=== PATIENT | male | born 1960 | race Caucasian/White ===

== ENCOUNTER → 2017-01-16 | Outpatient (CLI) | payer BC ==
--- NOTE | 2017-01-17 16:12 | MR ---
EXAMINATION TYPE: MR hip RT wo con DATE OF EXAM: 01/16/2017 9:05 PM COMPARISON: NONE HISTORY: 56-year-old male with right Hip Pain x4 years TECHNIQUE: Multiplanar, multisequence images of the right hip were obtained without IV contrast. FINDINGS: Prostate gland demonstrates cystic change and enlargement 4.9 cm wide and 4.3 cm craniocaudal. No evidence for hip fracture or AVN. There is marginal spurring at the right hip with superolateral joint space narrowing and prominent naranjo bchondral cystic change. Subchondral geodes measure up to 1.3 cm within the acetabular roof. There is subchondral marrow edema on both sides of the joint and suggestion of tear of the superior labrum. Asymmetric small right-sided joint effusion. There is suggestion of some degenerative change also at the left hip with subchondral cystic change a long the acetabular roof. Bony changes could be better evaluated with a radiographs. There is some degenerative signal change in the subarticular portion of the inferior SI joints, left greater than right. Mild heterogeneous marrow signal without spacious bone marrow replacement. The rectus femoris and and string origins as well as the iliopsoas and gluteal insertions appear inta ct. Symmetric course of the sciatic nerves. The right sciatic nerve is slightly larger with slightly incr eased signal. IMPRESSION: 1. Moderate to severe right hip osteoarthrosis is suggested. Reactive small joint effusion. The bony changes could be better evaluated radiographically. No hip fracture or AVN. 2. At least mild left hip osteoarthrosis. 3. Minimally larger right sciatic nerve as compared to the left with greater degree of signal as well . Correlate for possible right-sided sciatica. 4. Mild bilateral SI joint osteoarthrosis. 5. Prostatomegaly with cystic change (4.9 cm wide), suggesting cystic BPH. Further clinical correlati on recommended.
== END | disposition home or self-care (01) ==
LOC: RADMRIMAIN 20:02
PROVIDERS: ATTEND Family Medicine
DX: M53.3 Sacrococcygeal disorders, not elsewhere classified (principal); M25.551 Pain in right hip

== ENCOUNTER 2017-08-04 05:50 | Inpatient (IN) | payer BC ==
[2017-07-29 16:14] VITALS: BMI 27.8
--- NOTE | 2017-08-03 16:12 | HP ---
HISTORY AND PHYSICAL Surgery is scheduled for 08/04/2017. Miguel Almeida is a 57-year-old patient seen with progressive right hip pain consistent with symptomatic osteoarthritis. After treatment options were discussed, he elected to proceed with direct anterior right total hip arthroplasty. Consent was obtained, clearance was provided by Dr. Donohue. PAST MEDICAL HISTORY: Hypertension. PAST SURGICAL HISTORY: Noncontributory. DAILY MEDICATIONS: Amlodipine, benazepril, Neurontin. ALLERGIES: None reported. SOCIAL HISTORY: Patient is denies current tobacco use. PHYSICAL EXAMINATION: Evaluation right hip: There is very limited range of motion with significant pain, diffuse tenderness. Positive hip impingement sign. Straight leg raise is negative. Distal neurovascular exam is intact right hip. RADIOGRAPHS: Right hip radiographs revealed moderate to severe osteoarthritis. An MRI of the right hip reveals severe osteoarthritis. IMPRESSION: Right hip osteoarthritis. PLAN: Direct anterior right total hip arthroplasty. MMODL / IJN: [id number] /
[~2017-08-04 05:50] MED LIST: ACETAMINOPHEN TAB 500 MG TAB PO ONE; DEXAMETHASONE SOD PHOSPHATE 10 MG/ML 1 ML VIAL IV ONE; HYDROmorphone 0.5 MG/0.5 ML SYRINGE IVP PRN; MELOXICAM 7.5 MG TAB PO ONE; MIDAZOLAM 2 MG/2 ML VIAL IV PRN; ONDANSETRON 4 MG/2 ML VIAL IVP ONE; SCOPOLAMINE 1.5MG/72HR PATCH TRANSDERM ONE; TRANEXAMIC ACID 1,000 MG in SODIUM CHLORIDE 0.9% 100 ML IVPB ONE; ceFAZolin IN SWFI 2 GM/20 ML SYRINGE IVP ONE
[2017-08-04 06:23] VITALS: RESP 16
[2017-08-04] MEDS: LACTATED RINGERS 1,000 ML IV SCH ×3 (06:29→20:11)
[2017-08-04] MEDS ORDERED: LIDOCAINE 1% 20 ML VIAL (10MG/ML) FOR IV START INTRADERMA ONE (06:29)
[2017-08-04] MEDS ORDERED: PHENYLEPHRINE-0.9% NACL SYG 1 MG/10 ML SYRINGE ONE (07:24)
[2017-08-04] MEDS ORDERED: PROPOFOL 10 MG/ML 20 ML VIAL IV ONE (07:24)
[2017-08-04] MEDS ORDERED: ROPIVACAINE 246.25 MG, EPINEPHrine 0.5 MG, KETOROLAC 30 MG, cloNIDine HCL/PF 80 MCG, WA... MISCELLANE ONE ×5 (07:24)
[2017-08-04] MEDS ORDERED: fentaNYL (PF) 50 MCG/ML 2 ML AMP ONE (07:24)
[2017-08-04] MEDS ORDERED: MIDAZOLAM 2 MG/2 ML VIAL ONE (07:24)
[2017-08-04] MEDS ORDERED: TRANEXAMIC ACID 1,000 MG/10 ML VIAL ONE (07:24)
[2017-08-04] MEDS ORDERED: SODIUM CHLORIDE 0.9% 100 ML BAG ONE (07:24)
[2017-08-04] MEDS ORDERED: SODIUM CHLORIDE 0.9% 0 ML with ceFAZolin 2 GM IV ONE ×2 (07:37)
[2017-08-04] MEDS ORDERED: ceFAZolin 3,000 MG in SODIUM CHLORIDE 0.9% IRRIGATIO 3,000 ML IRRIGATION ONE (08:17)
[2017-08-04] MEDS ORDERED: LACTATED RINGERS 1,000 ML IV ONE ×2 (08:44→09:51)
--- NOTE | 2017-08-04 10:03 | XR ---
Fluoroscopy History: IN OR ANT RT HIP ORIF Dr. Jordan supervised use of lacho for a rt ant hip surgery. 43 secs fluoro and 1 paper images save d.
[2017-08-04] MEDS ORDERED: NALOXONE 0.4 MG/ML 1 ML VIAL IV PRN (10:10)
[2017-08-04] MEDS ORDERED: HYDROcodone/APAP 7.5-325MG 1 EACH TAB PO PRN (10:10)
[2017-08-04] MEDS ORDERED: hydrOXYzine PAMOATE 25 MG CAP PO PRN (10:10)
[2017-08-04] MEDS ORDERED: HYDROmorphone 0.5 MG/0.5 ML SYRINGE IVP PRN ×2 (10:10)
[2017-08-04] MEDS ORDERED: ONDANSETRON 4 MG/2 ML VIAL IVP PRN (10:10)
[2017-08-04] MEDS ORDERED: HYDROmorphone 2 MG/ML 1 ML SYRINGE IVP PRN (10:10)
--- NOTE | 2017-08-04 10:10 | P.OP ---
Date of Procedure: 08/04/17 Preoperative Diagnosis: Right hip osteoarthritis Postoperative Diagnosis: Right hip osteoarthritis Procedure(s) Performed: Direct anterior right total hip arthroplasty Implants: 1. Depuy [place] KA size 14 with collar press-fit femoral stem 2. Depuy [place] size 60 press-fit acetabular shell 3. Depuy [place] polyethylene acetabular liner 60 mm OD 36 mm ID 4. Depuy metal femoral head 36 mm -2 Anesthesia: local, spinal Surgeon: Yair Jordan Ax Survey Worker #1: Teddy Vu Estimated Blood Loss (ml): 600 Pathology: other (Femoral head) Condition: stable Disposition: PACU Indications for Procedure: 57-year-old patient seen with symptomatic right hip osteoarthritis. After we discussed treatment options, he elected to proceed with total hip arthroplasty. Operative Findings: see description of procedure Description of Procedure: The patient was taken to the operative suite. Patient underwent a spinal anesthetic by the department of anesthesia. Patient was then transferred to the [place] table. Patient was given preoperative IV antibiotics and TXA. Both lower extremities were placed in standard leg spars. The hip was then prepped and draped in the normal sterile orthopedic fashion. A standard anterior incision was made beginning 3 cm lateral and 1 cm distal to the ASIS extending 10 cm. Dissection was then carried down through the subcutaneous soft tissues down to the fascia overlying the tensor fascia colton. An incision was now made through the fascia. Careful dissection was taken down exposing the tensor fascia colton muscle. A Cobra retractor was now placed along the medial femoral neck and a second one along the lateral femoral neck. The venous circumflex vessels were now identified, cauterized and clipped. We identified the anterior hip capsule. An incision was made through the hip capsule along the lateral border. Tag sutures were then placed along the anterior capsule and lateral capsule. We then performed a capsulotomy. Retractors were now placed around the femoral neck itself. A Cobra retractor was now placed along the anterior acetabulum. Good exposure was now noted of the femoral head/neck complex. Residual labrum was debrided out. We placed the extremity into 3 turns of fine traction. We were then able to introduce a skid in between the femoral head and acetabulum. A placed a awl into the femoral head. We took 2 turns of traction off the extremity. Rotation was now released. The femoral head was then dislocated without difficulty. Additional releasing was performed of the capsule. The head was then reduced. All traction was released. A femoral neck cut was now made with a sagittal saw. It was completed with an osteotome at the lateral neck area. The femoral head was now removed without difficulty. There was advanced osteoarthritis noted of both the femoral head and acetabulum. The extremity was now rotated to 45 of external rotation. It was locked in position. Residual labrum was now debrided out. Serial reaming was performed of the acetabulum. Once we reached the appropriate size and a trial was position and fit nicely. The appropriate size was now chosen opened and made available. The wound was irrigated with pulse lavage mechanical irrigation. It was introduced into the acetabulum without difficulty. The C-arm/fluoroscopy was now brought into the operative field. We made sure we had a true AP pelvic view. We now under direct C-arm/ fluoroscopy introduced into the acetabular component with appropriate version and inclination. It was well seated and stable. The C-arm was pulled back. An appropriate liner was introduced and clicked into position. It was felt to be stable. At this point retractors were removed. The extremity was now placed into 120 external rotation with no traction. The leg was now dropped to the ground and adducted. Appropriate retractors were now positioned along the proximal femur. We also placed our femoral look into position. Additional capsular releasing was performed to gain access to the proximal femur. We now used a box osteotome. A canal finder was now utilized. Serial broaching was now performed until we reached the appropriate size with good overall rotational stability. Appropriate calcar planing was performed. A trial head/ neck was placed into position. The hip was now reduced. The C-arm/fluoroscopy was brought back into the operative field. A spot film was obtained of the nonoperative hip. A spot film was obtained of the trial components. Overlays were performed, we noted good overall alignment and positioning for determining leg length. The C-arm/fluoroscopy was pulled back. Retractors were repositioned and the hip was dislocated. The leg was again taken down to the ground and adducted. Appropriate retractors were repositioned as well as the femoral hook. All trial components were removed. The wound was irrigated with pulse lavage mechanical irrigation. The femoral implant was opened along with the femoral head. The femoral implant was introduced with good purchase and fixation noted. The femoral head was introduced with good positioning and fixation noted. Retractors were now removed. The hip was now reduced. There appeared be good positioning of the hip components. A spot film was obtained intraoperatively to document component positioning. A second gram of TXA was given. Bipolar cautery had been utilized intermittently through the procedure for hemostasis. The wound was irrigated copiously with pulse lavage mechanical irrigation. The deep soft tissues were infiltrated with local analgesic. The fascia was repaired with Vicryl suture. The subcutaneous soft tissues were repaired in layers with Vicryl suture. The skin was approximated with pernio/ Dermabond. Sterile dressings were applied. Patient was then awakened, transferred to a bed and taken to recovery in stable condition. Alvin CAPONE assisted with the procedure.
[2017-08-04] MEDS: HYDROcodone/APAP 7.5-325MG 1 EACH TAB PO PRN ×2 (11:48→16:46)
[2017-08-04] MEDS: traMADol 50 MG TAB PO SCH ×3 (12:31→21:47)
--- NOTE | 2017-08-04 15:04 | P.CONS ---
History of Present Illness - Reason for Consult Consult date: 08/04/17 Medical management Requesting physician: Yair Jordan - Chief Complaint Status post right total hip arthroplasty - History of Present Illness This is a 57-year-old male, patient of Dr. Donohue. He has a known past medical history of hypertension and osteoarthritis. Patient underwent a right total hip arthroplasty. Tolerated surgery well. Estimated blood loss 600 mL. Patient sitting in bedside chair. Denies any pain. Denies chest pain or shortness breath. Denies any nausea or vomiting. Denies any bowel movement changes. Stills Dickson catheter in place. We been consulted for medical management. Review of Systems Please refer to HPI otherwise unremarkable Past Medical History Past Medical History: Hypertension History of Any Multi-Drug Resistant Organisms: None Reported Past Surgical History: Appendectomy Additional Past Surgical History / Comment(s): ant TRH Past Anesthesia/Blood Transfusion Reactions: No Reported Reaction Past Psychological History: No Psychological Hx Reported Smoking Status: Never smoker Past Alcohol Use History: None Reported Past Drug Use History: None Reported - Past Family History Mother Family Medical History: Cancer Medications and Allergies Home Medications Medication Instructions Recorded Confirmed Type Benazepril [Lotensin] 10 mg PO QAM 07/29/17 08/04/17 History Cetirizine HCl [Zyrtec] 20 mg PO DAILY 07/29/17 08/04/17 History Gabapentin [Neurontin] 600 mg PO BID 07/29/17 08/04/17 History amLODIPine [Norvasc] 5 mg PO QAM 07/29/17 08/04/17 History Allergies Allergy/AdvReac Type Severity Reaction Status Date / Time dust Allergy See Comment Uncoded 08/04/17 12:34 Physical Exam Vitals: Vital Signs Temp Pulse Pulse Pulse Resp BP Pulse Ox 08/04/17 12:40 70 16 121/64 97 08/04/17 12:25 67 16 112/66 99 08/04/17 12:10 71 16 129/85 95 08/04/17 11:55 72 16 121/55 96 08/04/17 11:40 58 L 16 128/79 96 08/04/17 11:25 62 16 121/63 96 08/04/17 11:10 97.6 F 62 16 114/71 93 L 08/04/17 10:45 62 16 90/50 96 08/04/17 10:30 58 L 16 93/55 97 08/04/17 10:15 98 F 72 16 89/57 95 08/04/17 06:22 98.4 F 62 16 129/89 96 Intake and Output 08/04/17 08/04/17 08/04/17 06:59 14:59 22:59 Intake Total 400 2371 Output Total 875 Balance 400 1496 Intake: IV 400 2371 Output: Urine 275 Estimated Blood Loss 600 Other: Voiding Method Indwelling Catheter Weight 90.718 kg Patient Weight 08/05/17 06:59 Weight 90.718 kg Head normocephalic Neck supple Lungs clear to auscultation bilaterally no wheezing or crackles Heart regular rate and rhythm S1-S2, no rub or gallop Abdomen is soft nontender nondistended positive bowel sounds no hepatosplenomegaly Extremities no edema. Right hip dressing clean dry and intact. SCDs in place. Denies any numbness in his toes. Patient is able to wiggle toes. Neuro alert and orientated to 3 Assessment and Plan Assessment: 1. Right hip osteoarthritis: Status post direct anterior right total hip arthroplasty. Continue DVT prophylaxis with Lovenox and pain medications per orthopedic protocol 2. Essential hypertension: Blood pressures have been stable. Resume his Norvasc and lisinopril tomorrow morning 3. GI prophylaxis Pepcid and DVT prophylaxis Lovenox 4. Encourage incentive spirometry use Thank you for this consultation. We will continue to follow along with you during patient's hospitalization. Time with Patient: Greater than 30 (Greater than 50% of the total time spent in counseling and coordination of care.I performed an examination of the patient and discussed their management with the physician Steel Molder. I have reviewed the Physician Steel Molder's notes and agree with the documented findings and plan of care)
[2017-08-04] MEDS: ceFAZolin IN SWFI 2 GM/20 ML SYRINGE IVP SCH (16:02)
[2017-08-04] MEDS: GABAPENTIN 300 MG CAP PO SCH (20:08)
[2017-08-04] MEDS ORDERED: SENNOSIDES-DOCUSATE SODIUM 1 EACH TAB PO SCH (21:00)
[2017-08-05] MEDS: ceFAZolin IN SWFI 2 GM/20 ML SYRINGE IVP SCH (00:08)
[2017-08-05 01:59] VITALS: TEMP 97.8
[2017-08-05] MEDS: LACTATED RINGERS 1,000 ML IV SCH ×3 (03:45→09:05)
[2017-08-05] MEDS: HYDROcodone/APAP 7.5-325MG 1 EACH TAB PO PRN ×2 (06:28→13:29)
[2017-08-05 07:25] LABS: Basophils % (A) 0 %; CH 28.5; CHCM 32.7; Eosinophils % (A) 0 %; HCT 35.6 % (39.0-53.0); HDW 2.46; HGB 11.3 gm/dL (13.0-17.5); Luc # (Auto) 0.06; Luc % (Auto) 0; Lymphocytes # (A) 1.4 k/uL (1.0-4.8); Lymphocytes % (A) 10 %; MCH 27.9 pg (25.0-35.0); MCHC 31.8 g/dL (31.0-37.0); MCV 87.8 fL (80.0-100.0); Mean Platelet Volume 7.5; Monocytes # (A) 0.7 k/uL (0-1.0); Monocytes % (A) 5 %; Neutrophils # (A) 12.5 k/uL (1.3-7.7); Neutrophils % (A) 85 %; RBC 4.06 m/uL (4.30-5.90); RDW 13.6 % (11.5-15.5); WBC 14.8 k/uL (3.8-10.6); WBC (Perox) 15.59
[2017-08-05 07:36] LABS: ALT 34 U/L (21-72); AST 26 U/L (17-59); Alkaline Phosphatase 34 U/L (38-126); Anion Gap 8 mmol/L; Blood Urea Nitrogen 12 mg/dL (9-20); Carbon Dioxide 27 mmol/L (22-30); Chloride 103 mmol/L (98-107); Glucose 106 mg/dL (74-99); Non-African American GFR(MDRD) >60 (>60 ml/min/1.73 sqM); Potassium 4.4 mmol/L (3.5-5.1); Sodium 138 mmol/L (137-145); Total Bilirubin 0.3 mg/dL (0.2-1.3); Total Protein 5.4 g/dL (6.3-8.2)
[2017-08-05 08:55] VITALS: BP 124/61; PULSE 70
[2017-08-05] MEDS: GABAPENTIN 300 MG CAP PO SCH (08:57)
[2017-08-05] MEDS: traMADol 50 MG TAB PO SCH ×2 (08:58→12:33)
[2017-08-05] MEDS ORDERED: LORATADINE 10 MG TAB PO SCH (09:00)
[2017-08-05] MEDS ORDERED: FAMOTIDINE 20 MG TAB PO SCH (09:00)
[2017-08-05] MEDS ORDERED: MELOXICAM 7.5 MG TAB PO SCH (09:00)
[2017-08-05] MEDS ORDERED: amLODIPine 5 MG TAB PO SCH (09:00)
[2017-08-05] MEDS ORDERED: LISINOPRIL 10 MG TAB PO SCH (09:00)
[2017-08-05] MEDS ORDERED: ENOXAPARIN 40 MG/0.4 ML SYRINGE SQ SCH (09:00)
--- NOTE | 2017-08-05 10:48 | P.PN ---
Subjective Progress Note Date: 08/05/17 Status post right total hip arthroplasty Patient has been up and ambulating. Dickson catheter removed this morning. He denies any chest pain or shortness breath. Denies any nausea or vomiting. He is passing some gas. No bowel movement yet. The plan for discharge this afternoon. White count is 14.8. He is afebrile. No evidence of cellulitis. No cough. Objective - Vital Signs Vital signs: Vital Signs Temp 97.8 F 08/05/17 07:50 Pulse 70 08/05/17 08:55 Resp 16 08/05/17 07:50 BP 124/61 08/05/17 08:55 Pulse Ox 93 L 08/05/17 07:50 Intake & Output 08/04/17 08/05/17 08/05/17 18:59 06:59 18:59 Intake Total 2371 1300 Output Total 1275 1050 550 Balance 1096 250 -550 Weight 90.718 kg Intake: IV 2371 Intake, IV Titration 1300 Amount Lactated Ringers 1,000 ml 1300 @ 100 mls/hr IV .Q10H [facility] Rx#:[id number] Output: Urine 675 1050 550 Uretheral (Dickson) 400 350 Estimated Blood Loss 600 Other: Voiding Method Indwelling Catheter Indwelling Catheter - Exam Head normocephalic Neck supple Lungs clear to auscultation bilaterally no wheezing or crackles Heart regular rate and rhythm S1-S2, no rub or gallop Abdomen is soft nontender nondistended positive bowel sounds no hepatosplenomegaly Extremities no edema. Right hip incision site some minimal bruising noted. No evidence of cellulitis Neuro alert and orientated to 3 - Labs CBC & Chem 7: 08/05/17 06:41 08/05/17 06:41 Labs: Abnormal Lab Results - Last 24 Hours (Table) 08/05/17 08/05/17 Range/Units 06:41 06:41 WBC 14.8 H (3.8-10.6) k/uL RBC 4.06 L (4.30-5.90) m/uL Hgb 11.3 L (13.0-17.5) gm/dL Hct 35.6 L (39.0-53.0) % Neutrophils # 12.5 H (1.3-7.7) k/uL Glucose 106 H (74-99) mg/dL Alkaline Phosphatase 34 L (38-126) U/L Total Protein 5.4 L (6.3-8.2) g/dL Albumin 3.2 L (3.5-5.0) g/dL Assessment and Plan Assessment: 1. Right hip osteoarthritis: Status post direct anterior right total hip arthroplasty. Continue DVT prophylaxis with Lovenox and pain medications per orthopedic protocol 2. Essential hypertension: Blood pressures have been stable. Continue Lisinopril and Norvasc 3. GI prophylaxis Pepcid and DVT prophylaxis Lovenox 4. Leukocytosis likely reactive from surgery. No evidence of cellulitis or any acute infection. Recommend repeating CBC in 1 week Patient is medically stable for discharge when cleared by orthopedics. He is to follow-up with his PCP in 1 week.
--- NOTE | 2017-08-05 11:48 | P.PN ---
Subjective Progress Note Date: 08/05/17 Principal diagnosis: Status post right total hip arthroplasty Patient seen today resting in his hospital bed, he appears comfortable. The pain is well-controlled. He's ambulatory well with therapy. He has urinated on his own after removal of the catheter. He denies any headaches, lightheadedness, chest pain, shortness of breath. Objective - Vital Signs Vital signs: Vital Signs Temp 97.8 F 08/05/17 07:50 Pulse 70 08/05/17 08:55 Resp 16 08/05/17 07:50 BP 124/61 08/05/17 08:55 Pulse Ox 93 L 08/05/17 07:50 Intake & Output 08/04/17 08/05/17 08/05/17 18:59 06:59 18:59 Intake Total 2371 1300 Output Total 1275 1050 1150 Balance 1096 250 -1150 Weight 90.718 kg Intake: IV 2371 Intake, IV Titration 1300 Amount Lactated Ringers 1,000 ml 1300 @ 100 mls/hr IV .Q10H [facility] Rx#:[id number] Output: Urine 675 1050 1150 Uretheral (Dickson) 400 350 Estimated Blood Loss 600 Other: Voiding Method Indwelling Catheter Indwelling Catheter - Exam Right lower extremity: Incision is clean, dry, and intact. The prineo tape is in good condition. There is minimal soft tissue swelling and ecchymosis surrounding the medial and lateral aspects of the incision. Calf is soft, no tenderness with palpation. Plantar flexion, dorsiflexion, EHL, FHL are intact. Sensory exam to light touch throughout the extremity is intact, dorsal pedis pulses 2+. - Labs CBC & Chem 7: 08/05/17 06:41 08/05/17 06:41 Labs: Abnormal Lab Results - Last 24 Hours (Table) 08/05/17 08/05/17 Range/Units 06:41 06:41 WBC 14.8 H (3.8-10.6) k/uL RBC 4.06 L (4.30-5.90) m/uL Hgb 11.3 L (13.0-17.5) gm/dL Hct 35.6 L (39.0-53.0) % Neutrophils # 12.5 H (1.3-7.7) k/uL Glucose 106 H (74-99) mg/dL Alkaline Phosphatase 34 L (38-126) U/L Total Protein 5.4 L (6.3-8.2) g/dL Albumin 3.2 L (3.5-5.0) g/dL Assessment and Plan Plan: Assessment: 1. Postop day #1 status post right total hip arthroplasty Plan: 1. Pain control, we'll discharge home on oral medication 2. Home therapy and nursing after discharge 3. Wound care instructions discussed at bedside today 4. GI and DVT prophylaxis, we'll discharge home on aspirin 325 mg twice a day 5. Medical recommendations 6. Discharge planning: Patient will be discharged home today Time with Patient: Less than 30
--- NOTE | 2017-08-05 11:52 | P.DS ---
Providers Date of admission: 08/04/17 05:50 Expected date of discharge: 08/05/17 Attending physician: Yair Jordan Consults: 08/04/17 10:10 Consult Physician Routine Consulting Provider: Criss Purcell Consult Reason/Comments: Medical management Do you want consulting provider notified?: Yes Primary care physician: [facility] Hospital Course: Date of admission: 08/04/2017 Date of discharge: 08/05/2017 Admission diagnosis: Status post right total hip arthroplasty Discharge diagnosis: Same Attending physician: Dr. Jordan Surgical procedures: Right total hip arthroplasty Brief history: Patient is a 57-year-old male with a history of aggressive primary right hip osteoarthritis. At this point patient has failed conservative treatment measures and has opted to proceed with a elective right total hip arthroplasty. Hospital course: Details of patient's surgery can be found in operative report. Patient tolerated the procedure well and was subsequently transported to orthopedic floor. Patient's orthopeidc and medical care was provided daily. Patient had daily laboratory tests performed for evaluation of overall blood counts. Patient had daily physical therapy to include strengthening range of motion as well as education with walker ambulation. Patient was treated with Lovenox for their postoperative DVT prophylaxis during their inpatient stay. Patient was noted to have a relatively uneventful postoperative course. Patient reported satisfactory pain control with oral pain medications by postoperative day 0. Patient showed satisfactory progress with physical therapy. Patient moved steadily through the program and had no difficulty meeting the goals by postoperative day 1. Given patient's otherwise satisfactory course and having met physical therapy goals, plan is to discharge patient home on postoperative day 1. Discharge condition/disposition: Patient will be discharged home in stable condition. Discharge medications: Instructions are given on resumption of patient's normal daily medications per primary care recommendation, in addition patient will be prescribed [place] 7.5 mg/325 mg, tramadol 50 mg, Colace 100 mg, Pepcid 20 mg, aspirin 325 mg. Discharge instructions: 1. Wound care and infection precautions, keep incision dry and covered while showering, no lotions, creams, moisturizers. No soaking, tubs, pools, hottubs. Do not scrub over the incision. 2. Weight-bear as tolerated with walker / cane until follow-up. 3. Ice and elevate when necessary. Do not exceed 20 minutes per hour with ice pack. 4. Utilize compression sleeve until seen at first follow up appointment. 5. Visiting nursing care. 6. Home physical therapy. 7. Pain meds and anticoagulants per prescription. 8. Pain medication has potential to cause constipation. Increase oral fluid and fiber intake. Contact primary care provider if you have not had a bowel movement within 48 hours after discharge 9. No anti-inflammatory medication until discussed at first post operative visit, this including Motrin, Aleve, Mobic, Diclofenac. 10. Follow up in office at 2 weeks postop with Alvin Vu PA-C 11. Follow up with your primary care doctor 7-10 days after discharge. 12. Contact [facility] with any questions, . Procedures: right total hip arthroplasty Patient Condition at Discharge: Good Plan - Discharge Summary Discharge Rx Participant: Yes New Discharge Prescriptions: New Aspirin 325 mg PO BID #60 tab Docusate [Colace] 100 mg PO DAILY #30 capsule Famotidine [Pepcid] 20 mg PO DAILY #30 tablet HYDROcodone/APAP 7.5-325MG [[place] 7.5] 1 - 2 each PO Q6HR PRN #40 tab PRN Reason: Pain traMADol HCl [Ultram] 50 mg PO Q6H PRN #40 tab PRN Reason: Pain Continue Cetirizine HCl [Zyrtec] 20 mg PO DAILY amLODIPine [Norvasc] 5 mg PO QAM Gabapentin [Neurontin] 600 mg PO BID Benazepril [Lotensin] 10 mg PO QAM Discharge Medication List Benazepril [Lotensin] 10 mg PO QAM 07/29/17 [History] Cetirizine HCl [Zyrtec] 20 mg PO DAILY 07/29/17 [History] Gabapentin [Neurontin] 600 mg PO BID 07/29/17 [History] amLODIPine [Norvasc] 5 mg PO QAM 07/29/17 [History] Aspirin 325 mg PO BID #60 tab 08/05/17 [Rx] Docusate [Colace] 100 mg PO DAILY #30 capsule 08/05/17 [Rx] Famotidine [Pepcid] 20 mg PO DAILY #30 tablet 08/05/17 [Rx] HYDROcodone/APAP 7.5-325MG [[place] 7.5] 1 - 2 each PO Q6HR PRN #40 tab 08/05/17 [ Rx] traMADol HCl [Ultram] 50 mg PO Q6H PRN #40 tab 08/05/17 [Rx] Follow up Appointment(s)/Referral(s): Samia Donohue DO [Primary Care Provider] - 1 Week [facility], [NON-STAFF] - Teddy Vu PAC [PHYSICIAN [employer]OVING DEPARTMENT END FINDER] - 2 Weeks Activity/Diet/Wound Care/Special Instructions: Orthopedic Discharge Instructions: 1. Wound care and infection precautions, keep incision dry and covered while showering spine, no lotions, creams, moisturizers. No soaking, pools, hot tubs. Do not scrub over incision. 2. Weight-bear as tolerated with walker / cane until follow-up. 3. Ice and elevate when necessary. Do not exceed 20 minutes per hour with ice pack. 4. Utilize compression sleeve until seen at first follow up appointment. 5. Visiting nursing care. 6. Home physical therapy. 7. Pain meds and anticoagulants per prescription. 8. Pain medication has potential to cause constipation. Increase oral fluid and fiber intake. Contact primary care provider if you have not had a bowel movement within 48 hours after discharge. 9. No anti-inflammatory medication until discussed at first post operative visit, this including Motrin, Aleve, Mobic, Diclofenac. 10. Follow up in office at 2 weeks postop with Avlin Vu PA-C 11. Follow up with your primary care doctor 7-10 days after discharge. 12. Contact [facility] with any questions, . Discharge Disposition: HOME WITH HOME HEALTH SERVICES
[2017-08-05] MEDS ORDERED: MULTIVITAMINS, THERA 1 EACH TAB PO SCH (12:00)
== END 2017-08-05 15:10 | disposition home health service (06) | DRG 470 ==
LOC: 2ORMAIN 05:50 → 3SUR 10:00
PROVIDERS: ADMIT Orthopaedic Surgery; ATTEND Orthopaedic Surgery
PROC: 0SR902A Replacement of Right Hip Joint with Metal on Polyethylene Synthetic Substitute, Uncemented, Open Approach (ICD-10-PCS; principal; 2017-08-04 07:30)
DX: M16.11 Unilateral primary osteoarthritis, right hip (principal); I10 Essential (primary) hypertension; D72.829 Elevated white blood cell count, unspecified; Z79.899 Other long term (current) drug therapy
CPT/HCPCS: 36415; 73501; 80053; 85025; 86850; 86900; 86901; 87070; 88300

== ENCOUNTER 2019-09-21 00:04 | Emergency (ER) | payer BC ==
--- NOTE | 2019-09-21 01:49 | ED ---
General Adult HPI - General Chief complaint: Allergic Reaction Stated complaint: night sweats, poss med reaction Time Seen by Provider: 09/21/19 01:32 Source: patient, family Mode of arrival: ambulatory Limitations: no limitations - History of Present Illness Initial comments: This patient is a 59-year-old man who presents to be evaluated for what he is concerned may be medication reaction. The patient states that he has been having what he believes is bronchitis. He has been taking [id number] medication, including a DayQuil medication. He states that over the past couple of nights she has been feeling sweaty. He has had the cough that he attributed bronchitis, with occasional sputum. No hemoptysis. No dyspnea. When questioned about chest pain, patient states that he had some heartburn-like symptoms the past couple of days. Patient also notes that he had started a new medication to help him sleep. He had been taking amitriptyline 25 mg as needed. Onset/Timin -: days(s) Location: chest Radiation: non-radiation Quality: burning Consistency: intermittent, now resolved Improves with: none Worsens with: none Treatments Prior to Arrival: other (Cold medication) - Related Data Home Medications Medication Instructions Recorded Confirmed Benazepril [Lotensin] 10 mg PO QAM 07/29/17 08/04/17 Cetirizine HCl [Zyrtec] 20 mg PO DAILY 07/29/17 08/04/17 Gabapentin [Neurontin] 600 mg PO BID 07/29/17 08/04/17 amLODIPine [Norvasc] 5 mg PO QAM 07/29/17 08/04/17 Previous Rx's Medication Instructions Recorded Aspirin 325 mg PO BID #60 tab 08/05/17 Docusate [Colace] 100 mg PO DAILY #30 capsule 08/05/17 Famotidine [Pepcid] 20 mg PO DAILY #30 tablet 08/05/17 HYDROcodone/APAP 7.5-325MG [Ferney 1 - 2 each PO Q6HR PRN #40 tab 08/05/17 7.5] traMADol HCl [Ultram] 50 mg PO Q6H PRN #40 tab 08/05/17 Allergies Allergy/AdvReac Type Severity Reaction Status Date / Time dust Allergy See Comment Uncoded 09/21/19 00:13 Review of Systems ROS Statement: Those systems with pertinent positive or pertinent negative responses have been documented in the HPI. ROS Other: All systems not noted in ROS Statement are negative. Constitutional: Denies: fever, chills, weakness ENT: Reports: congestion Respiratory: Reports: cough. Denies: dyspnea, wheezes, hemoptysis Cardiovascular: Reports: as per HPI, chest pain. Denies: palpitations, edema, syncope Gastrointestinal: Denies: abdominal pain, nausea, vomiting, melena, hematochezia Genitourinary: Denies: dysuria, hematuria Musculoskeletal: Denies: back pain Skin: Denies: rash Neurological: Denies: headache, weakness, numbness Past Medical History Past Medical History: Hypertension History of Any Multi-Drug Resistant Organisms: None Reported Past Surgical History: Appendectomy Additional Past Surgical History / Comment(s): ant TRH Past Anesthesia/Blood Transfusion Reactions: No Reported Reaction Past Psychological History: No Psychological Hx Reported Smoking Status: Never smoker Past Alcohol Use History: None Reported Past Drug Use History: None Reported - Past Family History Mother Family Medical History: Cancer General Exam Limitations: no limitations General appearance: alert, in no apparent distress Head exam: Present: atraumatic, normocephalic Eye exam: Present: normal appearance. Absent: scleral icterus, conjunctival in jection ENT exam: Present: mucous membranes dry Neck exam: Present: normal inspection Respiratory exam: Present: normal lung sounds bilaterally. Absent: respiratory distress, wheezes, rales, rhonchi, stridor Cardiovascular Exam: Present: regular rate, normal rhythm, normal heart sounds. Absent: systolic murmur, diastolic murmur, rubs, gallop GI/Abdominal exam: Present: soft. Absent: distended, tenderness, guarding, rebound, rigid Extremities exam: Present: normal inspection, normal capillary refill. Absent: pedal edema, calf tenderness Back exam: Present: normal inspection Neurological exam: Present: alert Skin exam: Present: warm, dry, intact, normal color. Absent: rash Course Vital Signs 09/21/19 09/21/19 00:07 04:38 Temperature 98.7 F Pulse Rate 92 84 Respiratory 20 18 Rate Blood Pressure 155/97 151/10 O2 Sat by Pulse 96 96 Oximetry EKG Findings - EKG Results: EKG: interpreted by ERMD, sinus rhythm (With one premature atrial contraction. Rate 77 bpm), normal ST/T - Blocks, Corinne, Hypertrophy, ST Abn: AV and intraventricular conduction: left anterior fascicular block Medical Decision Making - Lab Data Result diagrams: 09/21/19 01:40 09/21/19 01:40 Lab Results 09/21/19 09/21/19 09/21/19 Range/Units 01:40 01:40 01:40 WBC 4.9 (3.8-10.6) k/uL RBC 5.47 (4.30-5.90) m/uL Hgb 15.6 (13.0-17.5) gm/dL Hct 45.5 (39.0-53.0) % MCV 83.1 (80.0-100.0) fL MCH 28.4 (25.0-35.0) pg MCHC 34.2 (31.0-37.0) g/dL RDW 12.4 (11.5-15.5) % Plt Count 248 (150-450) k/uL Neutrophils % 67 % Lymphocytes % 19 % Monocytes % 11 % Eosinophils % 1 % Basophils % 1 % Neutrophils # 3.3 (1.3-7.7) k/uL Lymphocytes # 0.9 L (1.0-4.8) k/uL Monocytes # 0.5 (0-1.0) k/uL Eosinophils # 0.1 (0-0.7) k/uL Basophils # 0.0 (0-0.2) k/uL PT 10.4 (9.0-12.0) sec INR 1.0 (<1.2) APTT 28.5 (22.0-30.0) sec Sodium 138 (137-145) mmol/L Potassium 3.8 (3.5-5.1) mmol/L Chloride 102 (98-107) mmol/L Carbon Dioxide 25 (22-30) mmol/L Anion Gap 11 mmol/L BUN 8 L (9-20) mg/dL Creatinine 0.67 (0.66-1.25) mg/dL Est GFR (CKD-EPI)AfAm >90 (>60 ml/min/1.73 sqM) Est GFR (CKD-EPI)NonAf >90 (>60 ml/min/1.73 sqM) Glucose 121 H (74-99) mg/dL Calcium 9.4 (8.4-10.2) mg/dL Magnesium 1.9 (1.6-2.3) mg/dL Total Bilirubin 0.8 (0.2-1.3) mg/dL AST 28 (17-59) U/L ALT 26 (4-49) U/L Alkaline Phosphatase 58 (38-126) U/L Troponin I (0.000-0.034) ng/mL Total Protein 7.3 (6.3-8.2) g/dL Albumin 4.6 (3.5-5.0) g/dL 09/21/19 Range/Units 01:40 WBC (3.8-10.6) k/uL RBC (4.30-5.90) m/uL Hgb (13.0-17.5) gm/dL Hct (39.0-53.0) % MCV (80.0-100.0) fL MCH (25.0-35.0) pg MCHC (31.0-37.0) g/dL RDW (11.5-15.5) % Plt Count (150-450) k/uL Neutrophils % % Lymphocytes % % Monocytes % % Eosinophils % % Basophils % % Neutrophils # (1.3-7.7) k/uL Lymphocytes # (1.0-4.8) k/uL Monocytes # (0-1.0) k/uL Eosinophils # (0-0.7) k/uL Basophils # (0-0.2) k/uL PT (9.0-12.0) sec INR (<1.2) APTT (22.0-30.0) sec Sodium (137-145) mmol/L Potassium (3.5-5.1) mmol/L Chloride (98-107) mmol/L Carbon Dioxide (22-30) mmol/L Anion Gap mmol/L BUN (9-20) mg/dL Creatinine (0.66-1.25) mg/dL Est GFR (CKD-EPI)AfAm (>60 ml/min/1.73 sqM) Est GFR (CKD-EPI)NonAf (>60 ml/min/1.73 sqM) Glucose (74-99) mg/dL Calcium (8.4-10.2) mg/dL Magnesium (1.6-2.3) mg/dL Total Bilirubin (0.2-1.3) mg/dL AST (17-59) U/L ALT (4-49) U/L Alkaline Phosphatase (38-126) U/L Troponin I <0.012 (0.000-0.034) ng/mL Total Protein (6.3-8.2) g/dL Albumin (3.5-5.0) g/dL Disposition Clinical Impression: Allergic reaction to drug Disposition: HOME SELF-CARE Condition: Good Instructions (If sedation given, give patient instructions): Adverse Drug Reaction (ED) Is patient prescribed a controlled substance at d/c from ED?: No Referrals: Samia Donohue DO [Primary Care Provider] - 1-2 days
--- NOTE | 2019-09-21 02:06 | XR ---
EXAMINATION TYPE: XR chest 2V DATE OF EXAM: 09/21/2019 COMPARISON: NONE HISTORY: Chest pain TECHNIQUE: FINDINGS: Heart and mediastinum are normal. Lungs are clear. Diaphragm is normal. Bony thorax appears intact. There is old left clavicle healed fracture. IMPRESSION: No active cardiopulmonary disease. Normal heart.
[2019-09-21 02:28] LABS: ALT 26 U/L (4-49); AST 28 U/L (17-59); African American GFR (CKD) >90 (>60 ml/min/1.73 sqM); Albumin 4.6 g/dL (3.5-5.0); Alkaline Phosphatase 58 U/L (38-126); Anion Gap 11 mmol/L; Blood Urea Nitrogen 8 mg/dL (9-20); Calcium 9.4 mg/dL (8.4-10.2); Carbon Dioxide 25 mmol/L (22-30); Chloride 102 mmol/L (98-107); Glucose 121 mg/dL (74-99); Magnesium 1.9 mg/dL (1.6-2.3); Non-African American GFR(CKD) >90 (>60 ml/min/1.73 sqM); Potassium 3.8 mmol/L (3.5-5.1); Sodium 138 mmol/L (137-145); Total Bilirubin 0.8 mg/dL (0.2-1.3); Total Protein 7.3 g/dL (6.3-8.2)
[2019-09-21 02:34] LABS: Partial Thromboplastin Time 28.5 sec (22.0-30.0); Prothrombin Time 10.4 sec (9.0-12.0)
[2019-09-21 02:50] LABS: Basophils % (A) 1 %; Eosinophils # (A) 0.1 k/uL (0-0.7); Eosinophils % (A) 1 %; HCT 45.5 % (39.0-53.0); HGB 15.6 gm/dL (13.0-17.5); Lymphocytes # (A) 0.9 k/uL (1.0-4.8); Lymphocytes % (A) 19 %; MCH 28.4 pg (25.0-35.0); MCHC 34.2 g/dL (31.0-37.0); MCV 83.1 fL (80.0-100.0); Mean Platelet Volume 7.4; Monocytes # (A) 0.5 k/uL (0-1.0); Monocytes % (A) 11 %; Neutrophils # (A) 3.3 k/uL (1.3-7.7); Neutrophils % (A) 67 %; Platelet Count 248 k/uL (150-450); RBC 5.47 m/uL (4.30-5.90); RDW 12.4 % (11.5-15.5); WBC 4.9 k/uL (3.8-10.6)
[2019-09-21 05:47] VITALS: BP 156/89; PULSE 71; RESP 16; TEMP 97
== END 2019-09-21 05:47 | disposition home or self-care (01) ==
LOC: EC 00:04
DX: R61 Generalized hyperhidrosis (principal); T50.905A Adverse effect of unspecified drugs, medicaments and biological substances, initial encounter; I10 Essential (primary) hypertension; Z79.899 Other long term (current) drug therapy; Z91.09 Other allergy status, other than to drugs and biological substances
CPT/HCPCS: 36415; 71046; 80053; 83735; 84484; 85025; 85610; 85730; 93005; 99284

== ENCOUNTER 2022-03-31 09:09 | Emergency (ER) | payer BC ==
[2022-03-31 09:31] VITALS: BP 146/102; PULSE 77; RESP 18
--- NOTE | 2022-03-31 10:42 | XR ---
EXAMINATION TYPE: XR KUB DATE OF EXAM: 03/31/2022 COMPARISON: NONE HISTORY: Pain TECHNIQUE: Single supine KUB image of the abdomen is obtained FINDINGS: Small bowel demonstrates no evidence for dilatation or air fluid levels. Gas and fecal material is seen in non-distended colon. No convincing evidence for pneumoperitoneum. There is mild fecal stasis. No unusual calcifications. The lung bases are clear. The osseous structures are intact. Total right hip arthroplasty is noted to be in place. IMPRESSION: 1. Overall nonobstructive bowel gas pattern.
--- NOTE | 2022-03-31 13:22 | ED ---
General Adult HPI - General Chief complaint: Abdominal Pain Stated complaint: Constipation Time Seen by Provider: 03/31/22 09:30 Source: patient, RN notes reviewed, old records reviewed Mode of arrival: ambulatory Limitations: no limitations - History of Present Illness Initial comments: This a 61-year-old male who presents emergency department stating after a dental procedure a few days ago he changed his diabetes but unable to have a bowel movement ever since per patient states he feels pressure at his anus but is unable to go. Patient comes in because he thinks he needs an enema. Patient denies any significant abdominal pain. Patient denies any vomiting. Patient states she still is passing gas. Patient denies any fever chills. - Related Data Home Medications Medication Instructions Recorded Confirmed Benazepril [Lotensin] 10 mg PO QAM 07/29/17 10/26/21 Cetirizine HCl [Zyrtec] 10 mg PO DAILY PRN 07/29/17 10/26/21 Gabapentin [Neurontin] 600 mg PO TID 07/29/17 10/26/21 amLODIPine [Norvasc] 5 mg PO QAM 07/29/17 10/26/21 Ergocalciferol [Vitamin D2 (1250 1,250 mcg PO TU 10/26/21 10/26/21 Mcg = 11730 Iu)] Montelukast [Singulair] 10 mg PO DAILY 10/26/21 10/26/21 QUEtiapine [SEROquel] 50 mg PO HS 10/26/21 10/26/21 Previous Rx's Medication Instructions Recorded Acetaminophen Tab [Tylenol] 650 mg PO Q6H #30 tab 10/28/21 Ibuprofen [Motrin] 600 mg PO Q6HR PRN #40 tab 10/28/21 Allergies Allergy/AdvReac Type Severity Reaction Status Date / Time Penicillins Allergy Rash/Hives Verified 03/31/22 09:31 dust AdvReac Sneezing, Uncoded 03/31/22 09:31 nasal congestion Review of Systems ROS Statement: Those systems with pertinent positive or pertinent negative responses have been documented in the HPI. ROS Other: All systems not noted in ROS Statement are negative. Past Medical History Past Medical History: Hypertension History of Any Multi-Drug Resistant Organisms: None Reported Past Surgical History: Appendectomy Additional Past Surgical History / Comment(s): ant TRH Past Anesthesia/Blood Transfusion Reactions: No Reported Reaction Past Psychological History: No Psychological Hx Reported Smoking Status: Never smoker Past Alcohol Use History: None Reported Past Drug Use History: None Reported - Past Family History Mother Family Medical History: Cancer General Exam - General Exam Comments Initial Comments: GENERAL: Patient is well-developed and well-nourished. Patient is nontoxic and well- hydrated and is in no acute distress. ENT: Neck is soft and supple. No significant lymphadenopathy is noted. Oropharynx is clear. Moist mucous membranes. Neck has full range of motion without eliciting any pain. EYES: The sclera were anicteric and conjunctiva were pink and moist. Extraocular movements were intact and pupils were equal round and reactive to light. Eyelids were unremarkable. PULMONARY: Unlabored respirations. Good breath sounds bilaterally. No audible rales rhonchi or wheezing was noted. CARDIOVASCULAR: There is a regular rate and rhythm without any murmurs gallops or rubs. ABDOMEN: Soft and nontender with normal bowel sounds. SKIN: Skin is clear with no lesions or rashes and otherwise unremarkable. NEUROLOGIC: Patient is alert and oriented x3. Cranial nerves II through XII are grossly intact. Motor and sensory are also intact. Normal speech, volume and content. Symmetrical smile. MUSCULOSKELETAL: Normal extremities with adequate strength and full range of motion. LYMPHATICS: No significant lymphadenopathy is noted PSYCHIATRIC: Normal psychiatric evaluation. Limitations: no limitations Course Vital Signs 03/31/22 09:27 Pulse Rate 77 Respiratory 18 Rate Blood Pressure 146/102 O2 Sat by Pulse 97 Oximetry Medical Decision Making - Medical Decision Making KUB shows constipation. Patient was given an enema in the emergency Department with great results patient was feeling considerably better. Disposition Clinical Impression: Constipation Disposition: HOME SELF-CARE Condition: Good Instructions (If sedation given, give patient instructions): Constipation (ED), High Fiber Diet (ED) Is patient prescribed a controlled substance at d/c from ED?: No Referrals: Samia Donohue DO [Primary Care Provider] - 1-2 days Time of Disposition: 13:22
== END 2022-03-31 13:43 | disposition home or self-care (01) ==
LOC: EC 09:09
DX: K59.00 Constipation, unspecified (principal); I10 Essential (primary) hypertension; Z88.0 Allergy status to penicillin; Z91.048 Other nonmedicinal substance allergy status; Z79.899 Other long term (current) drug therapy
CPT/HCPCS: 74018; 99283

== ENCOUNTER → 2024-09-18 | Outpatient (CLI) | payer BC ==
--- NOTE | 2024-09-18 08:53 | MR ---
EXAMINATION TYPE: MR Prostate wo/w con DATE OF EXAM: 09/18/2024 COMPARISON: Prior prostate ultrasound December 15, 2021 INDICATION: elevated psa. history of biopsy PSA: 5.58 ng/ml on April 20, 2024 Recent Biopsy and Date: May 17, 2020 Pathology Report (If Applicable): Benign all levels TECHNIQUE: Examination was performed using a 3T MRI without an endorectal coil. Multiparametric imaging was perf ormed with T2 mutliplanar sequences, axial diffusion weighted imaging and dynamic contrast enhanced i maging, utilizing 8.5 mL intravenous Gadobutrol gadolinium contrast. FINDINGS: There is no clinically significant cancer identified. PROSTATE VOLUME: 6.5 cm SI x 4.5 cm AP x 6.0 cm LR Vol= 91.9 cc PSA DENSITY: 0.06 ng/ml/cc Markedly enlarged prostate gland is redemonstrated bulging on bladder base. Suboptimal evaluation on DWI and ADC mapping due to artifact from right hip arthroplasty distorting normal anatomy similar to prior. No definitive areas of significant diminished signal on ADC mapping or significant increased s ignal on diffusion-weighted imaging. Central transitional zone shows heterogeneity and bilateral nodu les without distinct suspicious T2 hypointense area. Seminal vesicles appear within normal limits. Prostatic capsule is maintained. There is mass effect o n the bladder with mild wall thickening and trabeculation redemonstrated. There is small to moderate-sized fat-containing right inguinal hernia redemonstrated. No suspicious s mall or large bowel dilatation. No pelvic ascites. IMPRESSION: Suboptimal study. Markedly enlarged prostate gland redemonstrated. A focus of clinically significant cancer is not identified. No significant change from prior MRI. Highest Assessment Category: 2 MRI Stage: T0 N0 M0 based on review of pelvic images. False negative rates for MRI range from 5-20% depending on risk profile. Assessment Categories: 1 ? Very low (clinically significant cancer is highly unlikely to be present) 2 ? Low (clinically significant cancer is unlikely to be present) 3 ? Intermediate (the presence of clinically significant cancer is equivocal) 4 ? High (clinically significant cancer is likely to be present) 5 ? Very high (clinically significant cancer is highly likely to be present) [facility], , 09/18/2024 8:50 AM
== END | disposition home or self-care (01) ==
LOC: RADMRIMAIN 07:32
PROVIDERS: ATTEND Family Medicine
DX: N40.0 Benign prostatic hyperplasia without lower urinary tract symptoms (principal); R97.20 Elevated prostate specific antigen [PSA]
CPT/HCPCS: 72197; A9585